=== PATIENT | female | born 1955 | race Caucasian/White ===

== ENCOUNTER 2016-11-29 01:01 | Emergency (ER) | payer SELFPAY ==
[~2016-11-29] VITALS: Ht 160 cm; Wt 90.0 kg
[2016-11-29 01:09] VITALS: BP 153/83; PULSE 60; RESP 18; O2SAT 99
--- NOTE | 2016-11-29 01:16 | ED.REPORT ---
HPI-Dental/Mouth Prob Date of Service Nov 29, 2016 ED Provider: Sergio Mckinney DO Pt is an otherwise healthy 61 year old female who presents to the ED complaining of an dental abscess to her upper right back tooth. She states that she accidentally hit her front upper tooth on something today, increasing her pain. She c/o associated facial swelling and worsening throbbing dental pain. The pt denies any other symptoms. Pt reports taking ibuprofen without relief. Nursing Notes Stated Complaint: SWELLING ON FACE Chief Complaint: Dental Nursing Notes Reviewed: Yes Allergies: Coded Allergies: Sulfa (Sulfonamide Antibiotics) (Verified Allergy, Unknown, 11/29/16) General Time Seen by MD: 01:15 Chief Complaint Tooth pain Hx Obtained From: Patient Arrived By: Walk-in Onset Occurred: Onset unknown Symptom Duration: Since onset Quality: Painful Radiation: : Does not radiate Severity: Current: Moderate Severity: Maximum: Moderate Recent Healthcare: No recent doctor visit, No recent hospitalization Similar Sx Previous: No Past Medical History Past Medical History None reported - healthy Past Surgical History Denies Smoking History Unknown if Ever Smoker Social History Denies Ambulatory Status Independent Review of Systems + facial swelling + dental pain Constitutional: Denies: Fever Respiratory: Denies: Non-productive cough, Shortness of breath Complete sys rev & neg: except as marked. Physical Exam Initial Vital Signs Vital Signs (First) Date Time Temp Pulse Resp B/P Pulse Ox O2 Delivery O2 Flow Rate FiO2 11/29/16 01:09 36.4 60 18 153/83 99 Room Air Initial VS: Reviewed Head / Eyes: Atraumatic, Normocephalic Extremities: Vascular intact, Neuro intact Skin: Warm, Dry, No cyanosis Neurologic: Alert, Oriented, Nonfocal Psychiatric: Mood/affect normal, Behavior normal ENT: Atraumatic, Airway patent, No trismus Gingival inflammation without palpable abscess. No trismus or drooling. Swelling to right maxilla. Neck: Atraumatic, Full range of motion General/Constitutional: Awake, Alert Respiratory / Chest: Atraumatic, Breath sounds NL, Breath sounds = bilat, No stridor Interpretation & Diagnostics Lab Results Interpretation Test 11/29/16 02:05 Hold Purple Top Tube Received (Received) Hold Blue Top Tube Received (Received) Hold [place] Top Tube Received (Received) Hold Li Top Tube Received (Received) Re-Eval/Medical Decision Source of Hx: Old records Re-Evaluation/Progress : Time of Eval: 01:29 Re-Evaluation/Progress Note: Informed pt of option for CT followed by possible abscess drainage or option to treat with antibiotics and steroids. The pt reports that she would like to try treatment with antibiotics. Informed pt of plan for discharge. Pt understands and agrees with plan for discharge. F/U instructions and RTER warnings given. All questions addressed. Counseled Regarding: Diagnosis, Need for follow-up, When/why to return to ED Discharge & Departure Primary Impression: Dental infection Disposition: Home Discharge Condition All VS Reviewed: Yes Condition: Stable Patient Instructions: Dental Abscess (ED) Additional Instructions: Take Augmentin 2x daily for 7 days. [place] 1-2 every 6 hours as needed[address] Do not drive or drink alcohol or consume acetaminophen while on [place]. Call your dentist tomorrow for a follow up appointment this week. Return to the Emergency Department for any new or concerning symptoms such as facial swelling or abscess formation. Referrals: Michael Bocanegra Attestation Portions of this note were transcribed by Opal Gordon. I, Dr. Mckinney personally performed the history, physical exam and medical decision-making; I reviewed and confirmed the accuracy of the information in the transcribed note. Signed by : Kaylei Calvo, 11/28/16. copies to: Michael Bocanegra Todd P DO Nov 29, 2016 01:16 Opal Garrido Nov 29, 2016 01:35
[2016-11-29] MEDS ORDERED: Ampicillin-Sulbactam Inj 3,000 MG in 0.9% Sodium Chloride 100 ML IV ONE (01:35)
[2016-11-29] MEDS ORDERED: Dexamethasone Inj 20 MG in 0.9% Sodium Chloride-Pha MIX 50 ML IV ONE (01:35)
[2016-11-29 02:58] VITALS: BP 148/80; PULSE 62; RESP 16; O2SAT 100
== END 2016-11-29 03:00 | disposition home or self-care (01) ==
LOC: SED 01:01
DX: K04.7 Periapical abscess without sinus (principal); Z88.2 Allergy status to sulfonamides
CPT/HCPCS: 96365; 96375; 99284; J0295; J1100